=== PATIENT | male | born 1990 | race Caucasian/White ===

== ENCOUNTER 2018-02-26 23:12 | Emergency (ER) | payer OTHER, MEDICAID, SELFPAY ==
[2018-02-26 23:22] VITALS: BP 110/74; PULSE 54; RESP 18; TEMP 36.9; O2SAT 98; BMI 20.4
--- NOTE | 2018-02-26 23:22 | ED.DENTAL ---
HPI - Dental/Oral General Chief complaint: Dental/Oral Stated complaint: upper left side teeth pain Time Seen by Provider: 02/26/18 23:21 Source: patient Mode of arrival: ambulatory Limitations: no limitations History of Present Illness HPI Narrative: 27-year-old male here for evaluation of left upper tooth pain. He states it has been going on for the past couple days. He has been taking ibuprofen without much relief. He has known poor dentition is schedule to see an oral surgeon the beginning of next week to see what can be done about his teeth. No problems breathing. Related Data Previous Rx's Medication Instructions Recorded clindamycin HCl 300 mg PO QID 10 Days #40 cap 02/26/18 hydrocodone-acetaminophen [[place]] 1 tab PO Q4-6H PRN #10 tab 02/26/18 Allergies Allergy/AdvReac Type Severity Reaction Status Date / Time No Known Drug Allergies Allergy Verified 02/26/18 23:25 Review of Systems Constitutional Denies fever(s) ENT Ears, Nose, Mouth, and Throat: Reports dental pain Cardiovascular Denies chest pain and Denies dyspnea Respiratory Denies dyspnea Gastrointestinal Gastrointestinal: Denies abdominal pain, Denies nausea and Denies vomiting Musculoskeletal Denies myalgias and Denies arthralgias Hematologic/Lymphatic Denies easy bleeding and Denies easy bruising PFSH Medical History Healthy adult (Acute) Surgical History No pertinent past surgical history (Acute) Social History Smoking Status: Current every day smoker Exam Initial Vital Signs Initial Vital Signs: Vital Signs Temperature 98.4 F 02/26/18 23:22 Pulse Rate 54 L 02/26/18 23:22 Respiratory Rate 18 02/26/18 23:22 Blood Pressure 110/74 02/26/18 23:22 Pulse Oximetry 98 02/26/18 23:22 Const General: cooperative, comfortable, well developed, well groomed and No acute distress Orientation: alert, awake and oriented x3 HENMT Head: normal to inspection and normocephalic Ears: other (Bilateral tympanic membranes obscured by cerumen) Teeth and gingiva: caries and poor dentition Throat: posterior oropharynx normal Neck Lymphatic: No lymphadenopathy Resp Effort & Inspection: normal respiratory effort Skin Lesions: no lesions Rashes: no rashes Neuro General: alert, awake and oriented x3 Extrem General: normal to inspection and capillary refill normal Psych Appearance: grossly normal and well kempt Procedures Ear Wax Removal Both Ears: Results: Re-examined: some cerumen remains Ear Canal Exam: atraumatic Patient Tolerated Procedure: Well Complications: pain Technique: ear canal curetted Course Orders Ordered: Discontinued Medications Hydrocodone Bitart/Acetaminophen (Vicodin Prepack) 1 bottle MISC SEEINSTR ONE Stop: 02/26/18 23:35 Last Admin: 02/26/18 23:38 Dose: 1 bottle Vital Signs - 8 hr 02/26/18 23:22 Temperature 98.4 F Pulse Rate 54 L Respiratory Rate 18 Blood Pressure 110/74 Pulse Oximetry 98 MDM - Dental/Oral MDM Narrative Medical decision making narrative: Patient with very poor dentition with multiple caries and missing teeth. No abscess seen on the exam today every does have a broken tooth the area where he is tender. Will send home with a prescription for antibiotics and also pain medication. Is a follow-up on oral surgeon beginning of next week. He was given return precautions. He expressed understanding and agreement plan. I attempted to remove bilateral cerumen impactions and was able to get some earwax out however both tympanic membranes to remain obscured by cerumen. Discharge Plan Departure Patient Disposition: Home Clinical Impression: Pain due to dental caries Discharge Date/Time: 02/26/18 23:42 Interventions: ED Discharge Assessment Last Done: 02/26/18 23:42 Instructions: DI for Dental Pain Activity Restrictions/Additional Instructions: Recommend you keep your appointment that you have scheduled next week with the oral surgeon. Take the antibiotics as directed. Take the pain medication as directed. Recommend that you are also on anti-inflammatories such as Motrin or Naprosyn. Prescriptions: New clindamycin HCl 300 mg capsule 300 mg PO QID 10 Days Qty: 40 RF: 0 hydrocodone-acetaminophen [[place]] 5-325 mg tablet 1 tab PO Q4-6H PRN (Reason: pain) Qty: 10 RF: 0
--- NOTE | 2018-02-26 23:26 | PC.NURSE ---
Pt has multiple broken,cracked,missing teeth. Pt concerned he has an abscess. Pt scheduled to go to dentist in [place] next week.
[2018-02-26] MEDS: HYDROCODONE/ACET 5/325 PREPACK 1 BOTTLE MISC (23:38)
== END 2018-02-26 23:42 | disposition home or self-care (01) ==
PROVIDERS: Emergency Provider Emergency Medicine
DX: K02.9 Dental caries, unspecified (principal)
CPT/HCPCS: 99282

== ENCOUNTER 2018-11-25 11:55 | Emergency (ER) | payer OTHER, MEDICAID, SELFPAY ==
[2018-11-25 12:00] VITALS: BP 126/76; PULSE 67; RESP 18; TEMP 37.2; O2SAT 99; BMI 20.8
--- NOTE | 2018-11-25 12:20 | ED.EAR ---
HPI - Ear Problem <JOANNE Etienne - Last Filed: 11/25/18 12:24> General Chief complaint: Ear Stated complaint: Left Ear Plugged Up Time Seen by Provider: 11/25/18 12:01 Source: patient Mode of arrival: Ambulatory Limitations: no limitations History of Present Illness HPI Narrative: The patient is a 28-year-old male current smoker who denies any medical history presents with a chief complaint of left ear being plugged up. He states he has a history of cerumen impaction of both ears. Denies any fevers nausea vomiting or diarrhea. He states that his ear feels plugged, but is not painful. He denies any sore throat, cough congestion abdominal pain or other complaints today. Related Data Previous Rx's Medication Instructions Recorded hydrocodone-acetaminophen [[place]] 1 tab PO Q4-6H PRN #10 tab 02/26/18 carbamide peroxide [Debrox] 10 drop EAR-BOTH BID 4 Days #15 ml 11/25/18 Allergies Allergy/AdvReac Type Severity Reaction Status Date / Time No Known Drug Allergies Allergy Verified 02/26/18 23:25 Review of Systems <JOANNE Etienne - Last Filed: 11/25/18 12:24> Review of Systems Narrative: GENERAL: Denies chills, fatigue, malaise, fever, sweats. HEENT: See HPI RESPIRATORY: Denies dyspnea, cough, wheezing, hemoptysis, sputum. CARDIOVASCULAR: Denies chest pain, palpitations, orthopnea, edema, GASTROINTESTINAL: Denies nausea, vomiting, abdominal pain, diarrhea, constipation, melena. : Denies dysuria, frequency, incontinence, hematuria, urinary retention. MUSCULOSKELETAL: denies weakness, joint pain, or bony pain SKIN: Denies rash, skin lesions, or other NEUROLOGIC: Denies weakness, headache, numbness, change in speech, confusion, seizures, incoordination. PSYCHIATRIC: No concerning psychosocial issues. 12 point review of systems is negative except for those stated above Patient History <JOANNE Etienne - Last Filed: 11/25/18 12:24> Medical History Medical History Healthy adult (Acute) Social History Social History Smoking Status: Current every day smoker alcohol intake frequency: 0-2 drinks per day Substance Use Type: marijuana Exam <JOANNE Etienne - Last Filed: 11/25/18 12:24> Narrative Exam Narrative: GENERAL: This is a well-nourished, well-developed patient, in mild distress. HEAD: Atraumatic. Normocephalic. No temporal or scalp tenderness. EYES: Pupils equal round and reactive. Extraocular motions intact. No scleral icterus. No injection or drainage. ENT: Nose without bleeding, purulent drainage or septal hematoma. Throat without erythema, tonsillar hypertrophy or exudate. Uvula midline. Airway patent. Bilateral cerumen impaction noted on exam. No evidence of otitis externa bilaterally. Cobblestoning noted back of throat. NECK: Trachea midline. No JVD or lymphadenopathy. Supple, nontender, no meningeal signs. CARDIOVASCULAR: Regular rate and rhythm without murmurs, gallops, or rubs. RESPIRATORY: Clear to auscultation. Breath sounds equal bilaterally. No wheezes, rales, or rhonchi. No cough. No increased respiratory effort. No accessory muscle use EXTREMITIES: No clubbing, cyanosis, or edema. No joint tenderness, effusion, or edema noted. BACK: Nontender without deformity or crepitance. No flank tenderness. NEURO: AOx3. SKIN: No rash or erythema. Initial Vital Signs Initial Vital Signs: Vital Signs Temperature 98.9 F 11/25/18 12:00 Pulse Rate 67 11/25/18 12:00 Respiratory Rate 18 11/25/18 12:00 Blood Pressure 126/76 11/25/18 12:00 Pulse Oximetry 99 11/25/18 12:00 <Matt Sykes DO - Last Filed: 11/25/18 13:56> Initial Vital Signs Initial Vital Signs: Vital Signs Temperature 98.9 F 11/25/18 12:00 Pulse Rate 67 11/25/18 12:00 Respiratory Rate 18 11/25/18 12:00 Blood Pressure 126/76 11/25/18 12:00 Pulse Oximetry 99 11/25/18 12:00 Course <JOANNE Etienne - Last Filed: 11/25/18 12:24> Vital Signs Vital signs: Vital Signs - 8 hr 11/25/18 12:00 Temperature 98.9 F Pulse Rate 67 Respiratory Rate 18 Blood Pressure 126/76 Pulse Oximetry 99 <Matt Sykes DO - Last Filed: 11/25/18 13:56> Vital Signs Vital signs: Vital Signs - 8 hr 11/25/18 12:00 Temperature 98.9 F Pulse Rate 67 Respiratory Rate 18 Blood Pressure 126/76 Pulse Oximetry 99 Medical Decision Making <Judie FriasNICKP-BC - Last Filed: 11/25/18 12:24> MDM Narrative Medical decision making narrative: The patient is a 28-year-old male who presents with a chief complaint of left ear being plugged up. Exam indicates a bilateral cerumen impaction. The patient requests that we do not dig around in his ear. I discussed that I cannot rule in or out infection as I cannot see his tympanic membranes, the patient states he understands. I discussed at length use of Debrox wax softening drops and follow up with primary care provider. I discussed that the walk-in clinic does emergency department follow-up and gave him contact information for [facility] information resources director. I discussed at length coming back to the emergency department for any acute concerns such as chest pain, shortness of breath etc. Patient has no questions or concerns upon discharge and states understanding of return precautions as well as follow-up care. Discharge Plan Departure Patient Disposition: Home Clinical Impression: Impacted cerumen Qualifiers: Laterality: bilateral Qualified Code(s): H61.23 - Impacted cerumen, bilateral Excessive cerumen in ear canal Qualifiers: Laterality: bilateral Qualified Code(s): H61.23 - Impacted cerumen, bilateral Discharge Date/Time: 11/25/18 12:20 Instructions: How to Instill Ear Drops, Cerumen Impaction Activity Restrictions/Additional Instructions: Today I found that you have wax blocking both of your ear canals. I cannot evaluate your membranes clinic due to the wax. I have given you a prescription of wax softening drops. This is also available [id number]. I have also given you contact information for [facility] information resources director, who can help you identify primary care provider. Please follow up with primary care provider. The walk-in clinic will also do emergency department follow-up. Please come back to emergency department for any acute concerns. Please monitor for signs of worsening including fever, inability keep down fluids etc Prescriptions: New carbamide peroxide [Debrox] 6.5 % drops 10 drop EAR-BOTH BID 4 Days Qty: 15 RF: 0 No Action hydrocodone-acetaminophen [[place]] 5-325 mg tablet 1 tab PO Q4-6H PRN (Reason: pain) Qty: 10 RF: 0 Referrals: [facility] [Outside] <Matt Sykes DO - Last Filed: 11/25/18 13:56> Sign Out Provider Sign Out Attestation: I was available for consultation during this patient's emergency department visit. This chart is signed by myself for administrative purposes only. I did not have direct contact with this patient during this visit. They were seen independently by the APC.
== END 2018-11-25 12:20 | disposition home or self-care (01) ==
PROVIDERS: Emergency Provider Nurse Practitioner Family
DX: H61.23 Impacted cerumen, bilateral (principal)
CPT/HCPCS: 99282

== ENCOUNTER 2019-11-03 09:56 | Emergency (ER) | payer OTHER, MEDICAID, SELFPAY ==
[2019-11-03 10:16] VITALS: BP 118/83; PULSE 84; RESP 14; TEMP 36.9; O2SAT 98
--- NOTE | 2019-11-03 10:35 | ED_ITS ---
HPI - Dental/Oral General Chief complaint: Dental/Oral Stated complaint: FACIAL SWELLING LT SIDE/ TEETH PAIN 4/5DAYS Time Seen by Provider: 11/03/19 10:28 Source: patient Mode of arrival: Ambulatory Limitations: no limitations History of Present Illness HPI Narrative: The patient is a 29-year-old male who presents with distal pain and facial swelling. He has had chronic ongoing dental issues for the last 5-10 years. He occasionally gets swelling of the face. Last time he says his antibiotics were amoxicillin but switched to clindamycin. He has been taking ibuprofen but has not been helping. He tried to get into an oral surgeon last year but could not afford the co-pay. And a separate no he is concerned about Alzheimer's. His dad of Alzheimer's at 51 his grandfather had it at and at age 68 his anti also has as a young age. He is requesting a test for Alzheimer's. He does not have a primary care provider. He has been doing daily [employer] puzzles. MD Complaint: tooth pain Teeth map: 1. The pain multiple dental caries all over mouth no obvious dental abscess Onset (ago): day(s) Duration: constant Severity: mild Relieving factors: nothing Exacerbating factors: nothing Related Data Previous Rx's Medication Instructions Recorded hydrocodone-acetaminophen [[place]] 1 tab PO Q4-6H PRN #10 tab 02/26/18 clindamycin HCl 150 mg PO QID 7 Days #28 cap 11/03/19 Allergies Allergy/AdvReac Type Severity Reaction Status Date / Time No Known Drug Allergies Allergy Verified 02/26/18 23:25 Review of Systems Review of Systems Narrative: GENERAL: Denies chills,fever HEENT: + facial swelling, dental pain RESPIRATORY: Denies dyspnea, cough, wheezing CARDIOVASCULAR: Denies chest pain, palpitations GASTROINTESTINAL: Denies nausea, vomiting MUSCULOSKELETAL: Denies extremity pain, injury SKIN: No rash, no laceration, no pruritus NEUROLOGIC: Denies weakness, dizziness, headache, numbness 8 point review of systems is negative except for those stated above and HPI Patient History Medical History Healthy adult (Acute) Surgical History No pertinent past surgical history (Acute) Social History Smoking Status: Current every day smoker Smoking Status: Current every day smoker alcohol intake frequency: 0-2 drinks per day Substance Use Type: former substance user and marijuana Exam Initial Vital Signs Initial Vital Signs: Vital Signs Temperature 98.5 F 11/03/19 10:16 Pulse Rate 84 11/03/19 10:16 Respiratory Rate 14 11/03/19 10:16 Blood Pressure 118/83 11/03/19 10:16 Pulse Oximetry 98 11/03/19 10:16 GENERAL: Well-appearing, well-nourished and in no acute distress. MOUTH: Multiple dental caries all over he does have pain on the right upper side. He has mild facial swelling no trismus no erythema CARDIOVASCULAR: peripheral pulses in tact, cap refill <2 sec RESPIRATORY: No respiratory distress, speaks in full sentences without difficulty EXTREMITIES: Normal range of motion, no clubbing or edema. Neurovascularly intact NEUROLOGICAL: Cranial nerves II through XII grossly intact. Normal gait and speech. SKIN: Warm, dry, no petechiae, no rashes or lesions. Course Orders Ordered: Discontinued Medications Ketorolac Tromethamine (Toradol) 30 mg IM NOW ONE Stop: 11/03/19 10:35 Last Admin: 11/03/19 10:54 Dose: 30 mg Documented by: JALEESA Vital Signs Vital signs: Vital Signs - 8 hr 11/03/19 10:16 Temperature 98.5 F Pulse Rate 84 Respiratory Rate 14 Blood Pressure 118/83 Pulse Oximetry 98 Discharge Plan Departure Patient Disposition: Home Clinical Impression: Dental caries Discharge Date/Time: 11/03/19 10:59 Instructions: Tooth Decay Activity Restrictions/Additional Instructions: *You have been diagnosed with dental pain *What to do: You do need to see a dentist. *Continue to take medications as directed Clindamycin 150 mg 4 times a day for 7 days Tylenol 650 mg every 4-6 hours if needed for [id number] pain Ibuprofen 800 mg every 8 hours if needed for [id number] pain *Follow up with your primary care provider in 2-3 days *Return to ER if you should have increasing facial swelling, difficulty breathing, fever or any new, worsening or concerning symptoms Prescriptions: New clindamycin HCl 150 mg capsule 150 mg PO QID 7 Days Qty: 28 RF: 0 No Action hydrocodone-acetaminophen [[place]] 5-325 mg tablet 1 tab PO Q4-6H PRN (Reason: pain) Qty: 10 RF: 0
[2019-11-03] MEDS: KETOROLAC 60 MG/2 ML VIAL 30 MG IM (10:54)
== END 2019-11-03 10:59 | disposition home or self-care (01) ==
PROVIDERS: Emergency Provider Emergency Medicine
DX: K02.9 Dental caries, unspecified (principal)
CPT/HCPCS: 96372; 99283; J1885

== ENCOUNTER 2020-05-14 20:06 | Emergency (ER) | payer OTHER, MEDICAID, SELFPAY ==
[2020-05-14 20:14] VITALS: BP 111/71; PULSE 107; RESP 14; TEMP 37.6; O2SAT 96; BMI 21.4
[2020-05-14 20:51] LABS: COVID19 -Nasal RAPID Negative (Negative)
[2020-05-14 21:02] VITALS: BP 131/70; PULSE 82; RESP 14; O2SAT 97
--- NOTE | 2020-05-14 22:41 | ED_ITS ---
HPI - URI/Sore Throat General Chief Complaint: Upper Respiratory Symptoms Stated Complaint: SWELLING OF THE THROAT AND HEADACHE Time Seen by Provider: 05/14/20 20:48 Source: patient Mode of arrival: Ambulatory Limitations: no limitations History of Present Illness HPI Narrative: This is a 29-year-old male comes with complaint of swelling of his throat for several days. Patient has noticed a little bit of mild sinus congestion on the right. He has not had any fevers. He has not any hoarseness or voice changes. He has had discomfort in the back of his throat. He does not appreciate any tonsillar swelling. History significant for having all of his upper teeth removed which he states has been healing well. He states there is a small flap of skin that is still present from where they injected the lidocaine but he denies any other issues. He has not had any cough, he has not appreciated a lot of postnasal drip. No chest pain, shortness of breath no other GI or urinary symptoms. No rashes or skin changes. He states he is otherwise healthy. He denies any other surgeries besides his dental surgery. He denies any allergies to medications. He has not tried any other [id number] medications besides some cold and cough medication the 1st day. Related Data Previous Rx's Medication Instructions Recorded hydrocodone-acetaminophen [[place]] 1 tab PO Q4-6H PRN #10 tab 02/26/18 fluticasone propionate [Flonase 1 spray INTRANASAL DAILY #9.9 ml 05/14/20 Allergy Relief] Allergies Allergy/AdvReac Type Severity Reaction Status Date / Time No Known Drug Allergies Allergy Verified 05/14/20 20:17 Review of Systems Review of Systems ROS Unobtainable: All systems reviewed & are unremarkable except as noted in HPI and below Patient History Medical History Healthy adult Surgical History No pertinent past surgical history Social History Smoking Status: Current every day smoker Smoking Status: Current every day smoker alcohol intake frequency: 0-2 drinks per day Substance Use Type: former substance user and marijuana Exam Narrative Exam Narrative: GEN: well nourished, thin, well appearing male, alert and oriented x 3, patient appears to be in mild distress. HEENT: Atraumatic, pupils are equal round reactive to light, extraocular movements are intact, nares are clear, TMs are clear with no fluid, there is no conjunctival pallor. Throat is clear without any exudates, positive for erythema, no tonsillar enlargement or uvular deviation. Patient does have a small area of white skin on the top of the hard palate. Patient does not have any other skin changes. No other lesions are noted. No stridor. No hoarseness. HEART: Regular rate and rhythm without murmur, clicks, rubs. LUNGS:Lungs clear to auscultation, no wheezes, rales, crackles, chest moves symmetrically ABD:bowel sounds normal, soft, non-tender, no guarding, rebound, rigidity, no masses noted, no hepatosplenomegaly :No CVA tenderness MSCL: Non-tender, no muscle atrophy, muscles strength 5/5 upper and lower extremities, full range of motion, normal gait NEURO:CN 2-12 intact, sensation normal SKIN: No rash erythema or other skin changes noted Initial Vital Signs Initial Vital Signs: Vital Signs Temperature 99.6 F 05/14/20 20:14 Pulse Rate 107 H 05/14/20 20:14 Respiratory Rate 14 05/14/20 20:14 Blood Pressure 111/71 05/14/20 20:14 Pulse Oximetry 96 05/14/20 20:14 Course Orders Ordered: ED Orders 05/14/20 20:22 COVID19 -Nasal swab/Pre-Proc Stat Throat Culture Stat Vital Signs Vital signs: Vital Signs - 8 hr 05/14/20 23:17 Pulse Rate 81 Respiratory Rate 14 Blood Pressure 109/71 Pulse Oximetry 96 MDM - URI/Sore Throat Lab Data Attestation: I reviewed the patient's lab results. Lab results narrative: negative poc rapid strep. Labs: Lab Results 05/14/20 Range/Units 20:22 SARS-CoV-2 (PCR) Negative (Negative) Point of Care Testing Rapid Strep A Negative [facility] Narrative Medical decision making narrative: 29 year male with concern for sore throat. Patient states mild symptoms, he came because his grandmother was concerned for covid infection. Patient did have recent dental surgery which he states has been healing very well and he seems pretty positive about the outcome. He has had some mild sinus drainage. On examination he has cobblestoning and appears to have postnasal drip. We discussed starting a antihistamine and possibly Flonase to see if this is helpful. He did have a small area of white skin on the top of his hard palate which he states has been present and was where they initially placed his anesthesia/numbing medication for his dental procedure. He states it seems to be a healing. Throat culture was sent. Rapid strep was negative. Discharge Plan Departure Patient Disposition: Home Clinical Impression: Pharyngitis Instructions: Sore Throat Activity Restrictions/Additional Instructions: Follow up if you are not having any improvement of your symptoms. You may try Flonase 1-2 sprays in each nostril daily to see if this improves her symptoms. You may also find a clear 10, loratadine, size out or Zyrtec which are all antihistamines once daily helpful. Please return for fevers, worsening swelling, swelling of the airway, stridor or high-pitched wheezing when her breathing, swelling of her neck, lips, mouth or oropharynx, lightheadedness or passing out, persistent vomiting other new or concerning symptoms. Prescriptions: New fluticasone propionate [Flonase Allergy Relief] 50 mcg/actuation spray,suspension 1 spray intranasal DAILY Qty: 9.9 RF: 0 No Action hydrocodone-acetaminophen [[place]] 5-325 mg tablet 1 tab PO Q4-6H PRN (Reason: pain) Qty: 10 RF: 0
[2020-05-14 23:17] VITALS: BP 109/71; PULSE 81; RESP 14; O2SAT 96
== END 2020-05-14 23:18 | disposition home or self-care (01) ==
PROVIDERS: Emergency Provider Emergency Medicine
DX: J02.9 Acute pharyngitis, unspecified (principal); Z20.822 Contact with and (suspected) exposure to COVID-19
CPT/HCPCS: 87070; 87635; 87880; 99282; C9803

== ENCOUNTER 2020-09-23 14:00 | Emergency (ER) | payer OTHER, MEDICAID, SELFPAY ==
[2020-09-23 14:38] VITALS: BP 122/73; PULSE 70; RESP 14; TEMP 36.6; O2SAT 97; BMI 20.5
[2020-09-23 15:26] LABS: COVID19 -Nasal RAPID Negative (Negative)
--- NOTE | 2020-09-23 15:48 | PC.NURSE ---
attmepted to bring pt in to dept from [facility] and pt outside smoking.
--- NOTE | 2020-09-23 16:25 | ED.RECABL ---
HPI - Recheck/Abnormal Lab/Rx <Immanuel Padilla PA-C - Last Filed: 09/23/20 16:30> General Chief Complaint: Recheck/Abnormal Lab/Rx Stated Complaint: exposed to covid, would like to be tested Time Seen by Provider: 09/23/20 15:33 Source: patient Mode of arrival: Ambulatory Limitations: no limitations History of Present Illness HPI narrative: Santos presents today with chief complaint of exposure to COVID positive individual. He lives with his grandmother and grandfather who are elderly. One of the caregivers came by earlier this week who tested positive for COVID last night. He had a loose exposure to this individual for brief period of time. He denies any symptoms at this time. He is fully vaccinated for COVID. Related Data Previous Rx's Medication Instructions Recorded hydrocodone 5 mg-acetaminophen 325 1 tab PO Q4-6H PRN #10 tab 02/26/18 mg tablet ([place]) fluticasone propionate 50 1 spray INTRANASAL DAILY #9.9 ml 05/14/20 mcg/actuation nasal spray,suspension (Flonase Allergy Relief) Allergies Allergy/AdvReac Type Severity Reaction Status Date / Time No Known Drug Allergies Allergy Verified 09/23/20 14:37 Review of Systems <Immanuel Padilla PA-C - Last Filed: 09/23/20 16:30> Review of Systems Narrative: As per HPI Patient History <Immanuel Padilla PA-C - Last Filed: 09/23/20 16:30> Medical History (Updated 09/23/20 @ 16:24 by Immanuel Padilla PA-C) Healthy adult Surgical History No pertinent past surgical history Social History Smoking Status: Current every day smoker Smoking Status: Current every day smoker alcohol intake frequency: 0-2 drinks per day Substance Use Type: former substance user and marijuana Exam <Immanuel Padilla PA-C - Last Filed: 09/23/20 16:30> Narrative Exam Narrative: Exam Narrative: Const General: cooperative, healthy appearing, comfortable, no acute distress, well developed and well groomed Nutritional Appearance: average body habitus Orientation: alert and oriented x3 HENMT Head: normal to inspection and atraumatic Ears: hearing grossly normal bilaterally Nose: external nose normal and nares normal Face and sinus: normal facial exam Neck Neck: normal visual inspection and supple Resp Effort & Inspection: normal respiratory effort, able to speak in complete sentences, no audible wheezes, not labored, no nasal flaring and no respiratory distress Neuro General: alert, oriented x3, gait normal, tone normal and moves all extremities Cognition: normal cognition Speech: speech normal Gait: normal gait Psych Appearance: grossly normal and well kempt Mental Status: mental status grossly normal Speech and Movement: speech and movement normal Mood: congruent mood Affect: normal affect Initial Vital Signs Initial Vital Signs: Vital Signs Temperature 97.9 F 09/23/20 14:38 Pulse Rate 70 09/23/20 14:38 Respiratory Rate 14 09/23/20 14:38 Blood Pressure 122/73 09/23/20 14:38 Pulse Oximetry 97 09/23/20 14:38 <Matt Sykes DO - Last Filed: 09/23/20 17:41> Initial Vital Signs Initial Vital Signs: Vital Signs Temperature 97.9 F 09/23/20 14:38 Pulse Rate 70 09/23/20 14:38 Respiratory Rate 14 09/23/20 14:38 Blood Pressure 122/73 09/23/20 14:38 Pulse Oximetry 97 09/23/20 14:38 Course <Immanuel Padilla PA-C - Last Filed: 09/23/20 16:30> Orders Ordered: ED Orders 09/23/20 14:39 COVID19 -Nasal swab/Pre-Proc Stat Vital Signs Vital signs: Vital Signs - 8 hr 09/23/20 14:38 Temperature 97.9 F Pulse Rate 70 Respiratory Rate 14 Blood Pressure 122/73 Pulse Oximetry 97 <DO Rebeca Stewart Last Filed: 09/23/20 17:41> Orders Ordered: ED Orders 09/23/20 14:39 COVID19 -Nasal swab/Pre-Proc Stat Vital Signs Vital signs: Vital Signs - 8 hr 09/23/20 14:38 Temperature 97.9 F Pulse Rate 70 Respiratory Rate 14 Blood Pressure 122/73 Pulse Oximetry 97 MDM - Recheck/Abnormal Lab/Rx <Immanuel Padilla PA-C - Last Filed: 09/23/20 16:30> Lab Data Labs: Lab Results 09/23/20 Range/Units 14:39 SARS-CoV-2 (PCR) Negative (Negative) MDM Narrative Medical decision making narrative: Patient is well-appearing at this time and is asymptomatic. They had negative COVID test. He is fully vaccinated. Recommend no further intervention at this time. <Matt Sykes DO - Last Filed: 09/23/20 17:41> Lab Data Labs: Lab Results 09/23/20 Range/Units 14:39 SARS-CoV-2 (PCR) Negative (Negative) Discharge Plan Departure Patient Disposition: Home Clinical Impression: Close exposure to COVID-19 virus Instructions: DI for COVID-19 (Suspected or Confirmed ) Activity Restrictions/Additional Instructions: Thank you for coming in today. He or test was negative. Please follow the CDC guidelines for close exposure. Follow up with PCP for any additional concerns or complaints. Thank you Immanuel Padilla PAC Prescriptions: No Action hydrocodone-acetaminophen [[place]] 5-325 mg tablet 1 tab PO Q4-6H PRN (Reason: pain) Qty: 10 RF: 0 fluticasone propionate [Flonase Allergy Relief] 50 mcg/actuation spray,suspension 1 spray intranasal DAILY Qty: 9.9 RF: 0 <Matt Sykes DO - Last Filed: 09/23/20 17:41> Cosign ED Attending Cosignature Attestation: Dr Sykes Co-Sign Statement: I was available for consultation during this patient's emergency department visit. This chart is signed by myself for administrative purposes only. I did not have direct contact with this patient during this visit. They were seen independently by the APC.
== END 2020-09-23 16:27 | disposition home or self-care (01) ==
PROVIDERS: Emergency Medicine; Emergency Provider Physician Assistant
DX: Z20.822 Contact with and (suspected) exposure to COVID-19 (principal)
CPT/HCPCS: 87635; 99281; C9803

== ENCOUNTER 2021-06-19 02:36 | Emergency (ER) | payer OTHER, MEDICAID, SELFPAY ==
--- NOTE | 2021-06-19 02:58 | DI.RAD.S_ITS ---
PROCEDURE: XR KNEE RT 3V INDICATIONS: pain after injury TECHNIQUE: 3 views of the knee were acquired. COMPARISON: None. FINDINGS: Bones: No definitive fractures or dislocations. There is a cortical lucency in the anterior cortex of the patella on sunrise view. No suspicious bony lesions. Soft tissues: Trace joint effusion. No suspicious soft tissue calcifications. Mild prepatellar soft tissue swelling. IMPRESSION: 1. A cortical lucency in the anterior cortex of the patella is most likely caused by a nutrient vessel. Less likely, it could represent a nondisplaced fracture. Recommend a follow-up examination in 7-10 days if clinical suspicion persists. No significant discrepancy with the fast food shift supervisor radiology preliminary report. Dictated by: Rosie Diaz M.D. on 06/19/2021 at 7:34 Approved by: Rosie Diaz M.D. on 06/19/2021 at 7:37
[2021-06-19 03:30] VITALS: BP 118/73; PULSE 71; RESP 16; TEMP 36.2; O2SAT 96; BMI 20.2
--- NOTE | 2021-06-19 04:24 | ED_ITS ---
HPI - Extremity Injury (Lower) General Chief Complaint: Extremity Injury, Lower Stated Complaint: right knee injury/pain 5 days Time Seen by Provider: 06/19/21 02:40 Source: patient Mode of arrival: Ambulatory Limitations: no limitations History of Present Illness HPI Narrative: Patient is a 31-year-old male here for evaluation of a right knee injury. He states that on Sunday he was skateboarding when he was going down a hill. He states that he fell landing on his right knee. Since that time he has had some discomfort. He does have an abrasion on his knee which he has been keeping clean with soap and water. He states he yesterday he bent his knee and felt and heard a pop and then felt like his kneecap moved. He was in what he reports nauseating pain for about 30 minutes. Related Data Previous Rx's Medication Instructions Recorded hydrocodone 5 mg-acetaminophen 325 1 tab PO Q4-6H PRN #10 tab 02/26/ mg tablet ([place]) fluticasone propionate 50 1 spray INTRANASAL DAILY #9.9 ml 05/14/20 mcg/actuation nasal spray,suspension (Flonase Allergy Relief) Allergies Allergy/AdvReac Type Severity Reaction Status Date / Time No Known Drug Allergies Allergy Verified 09/23/20 14:37 Review of Systems Musculoskeletal Musculoskeletal: Reports system reviewed and no additional complaints, except as documented and Reports as per HPI Integumentary/Breasts Skin/Breast: Reports system reviewed and no additional complaints, except as documented and Reports as per HPI Neurologic Neurologic: Reports system reviewed and no additional complaints, except as documented and Reports as per HPI Patient History Medical History (Updated 06/19/21 @ 04:30 by Matt Sykes DO) Healthy adult Surgical History No pertinent past surgical history Social History Smoking Status: Current every day smoker Smoking Status: Current every day smoker alcohol intake frequency: 0-2 drinks per day Substance Use Type: former substance user and marijuana Exam Initial Vital Signs Initial Vital Signs: Vital Signs Temperature 97.1 F L 06/19/21 03:30 Pulse Rate 71 06/19/21 03:30 Respiratory Rate 16 06/19/21 03:30 Blood Pressure 118/73 06/19/21 03:30 Pulse Oximetry 96 06/19/21 03:30 Skin Other: Superficial abrasion anterior right knee Neuro Gait: normal gait Sensory Exam: no sensory deficits noted Extrem Other: Patient can do straight leg raise. No tenderness over the patella tendon or quadriceps tendon. Hamstrings are intact. No proximal fibula tenderness. Mild tenderness along the medial joint line. No lateral joint line tenderness. ACL MCL PCL and LCL intact with functional testing. Course Orders Ordered: ED Orders 06/19/21 02:58 XR knee RT 3V Stat Vital Signs Vital signs: Vital Signs - 8 hr 06/19/21 03:30 Temperature 97.1 F L Pulse Rate 71 Respiratory Rate 16 Blood Pressure 118/73 Pulse Oximetry 96 MDM - Extremity Injury (Lower) Imaging Data Extremity x-ray #1: My Impression: No fractures no dislocations noted MDM Narrative Medical decision making narrative: Patient had a fall a couple days ago. Does have an abrasion over the anterior knee that has no signs of infection. Is ambulatory. X-ray show no fractures. Discussed this with him. Discussed conservative measures. He does have a knee brace at home which he can use as needed. He is given return precautions. Expressed understanding agreement. Discharge Plan Departure Patient Disposition: Home Clinical Impression: Knee sprain, Abrasion of skin Instructions: How To Perform RICE (Rest, Ice, Compress, Elevate) Activity Restrictions/Additional Instructions: The x-ray today did not show any signs of a fracture. You have no limitations your activities. You can use the knee brace that you have at home as needed. Return to the emergency department for any new or worsening symptoms. Prescriptions: No Action hydrocodone-acetaminophen [[place]] 5-325 mg tablet 1 tab PO Q4-6H PRN (Reason: pain) Qty: 10 0RF fluticasone propionate [Flonase Allergy Relief] 50 mcg/actuation spray,suspension 1 spray intranasal DAILY Qty: 9.9 0RF Rx Instructions: administer into each nostril
--- NOTE | 2021-06-19 04:32 | PC.NURSE ---
deferred assessment to provider
== END 2021-06-19 04:33 | disposition home or self-care (01) ==
PROVIDERS: Emergency Provider Emergency Medicine
DX: S83.92XA Sprain of unspecified site of left knee, initial encounter (principal); S80.212A Abrasion, left knee, initial encounter; V00.138A Other skateboard accident, initial encounter
CPT/HCPCS: 73562; 99283